=== PATIENT | female | born 1980 | race Caucasian/White ===

== ENCOUNTER 2016-07-23 23:35 | Emergency (ER) | payer SELFPAY ==
[~2016-07-23] VITALS: Ht 175.3 cm; Wt 90.7 kg
[2016-07-23] MEDS ORDERED: FLUO10CA26 PO (23:48)
[2016-07-24] MEDS ORDERED: LORAZEPAM 2 MG/1 ML VIAL ONE ×2 (00:13→00:52)
--- NOTE | 2016-07-24 00:20 | NUR ---
Patient was resting in bed with eyes closed, security at bedside for safety, when she spontaneously began to shout out, writhe in bed, and began taking drawers from the nearby night stand and began throwing items around the room. Patient did not respond to verbal redirection, acute medical restraints applied to bilateral wrists, ROM checked, circulation checked, cap refill <2 seconds.
[2016-07-24] MEDS ORDERED: LORAZEPAM 2 MG/1 ML VIAL IM ONE ×2 (00:45)
[2016-07-24 00:52] LABS: ETHANOL 221 MG/DL (0-0)
[2016-07-24 00:53] LABS: BASOPHILS % (AUTO) 0.2 % (0.0-2.0); EOSINOPHILS % (AUTO) 0.4 % (0.0-7.0); HEMATOCRIT 33.9 % (31.2-41.9); HEMOGLOBIN 11.8 g/dL (10.9-14.3); LYMPHOCYTES # (AUTO) 1.9 K/uL (20.0-40.0); LYMPHOCYTES % (AUTO) 17.4 % (20.5-51.5); MEAN CORPUSCULAR HEMOGLOBIN 26.9 uug (24.7-32.8); MEAN CORPUSCULAR HGB CONC 35 g/dL (32.3-35.6); MEAN CORPUSCULAR VOLUME 77.2 fL (75.5-95.3); MONOCYTES # (AUTO) 0.7 K/uL (2.0-10.0); MONOCYTES % (AUTO) 6.6 % (0.0-11.0); NEUTROPHILS # (AUTO) 8.6 K/uL (1.8-8.9); NEUTROPHILS % (AUTO) 75.4 % (38.5-71.5); PLATELET COUNT (AUTO) 308 K/uL (179-408); RED BLOOD CELL COUNT(AUTO) 4.39 MIL/uL (3.63-4.92); RED CELL DISTRIBUTION WIDTH 15.5 % (12.3-17.7); WHITE BLOOD COUNT (AUTO) 11.2 K/uL (3.8-11.8)
--- NOTE | 2016-07-24 00:55 | NUR ---
Removed one hand from restraint, patient calmer. Patient able to be verbally redirected.
[2016-07-24 01:01] LABS: ACETAMINOPHEN < 2.0 ug/mL (10-30); ALANINE AMINOTRANSFERASE 29 U/L (14-59); ALBUMIN 3.5 g/dL (3.4-5.0); ALKALINE PHOSPHATASE 69 U/L (50-136); ASPARTATE AMINOTRANSFERASE 21 U/L (15-37); BILIRUBIN,DIRECT 0.1 mg/dL (0.0-0.2); BILIRUBIN,TOTAL 0.2 mg/dL (0.2-1.0); CALCIUM 8.6 mg/dL (8.5-10.1); CARBON DIOXIDE 22 mmol/L (21-32); CHLORIDE 105 mmol/L (98-107); CREATININE 0.9 mg/dL (0.6-1.3); GFR 71 mL/min (>60); GLUCOSE 121 mg/dL (74-106); POTASSIUM 3.2 mmol/L (3.5-5.1); SODIUM SERUM 140 mmol/L (136-145); TOTAL PROTEIN, SERUM 7.4 g/dL (6.4-8.2); UREA NITROGEN, BLOOD 10 mg/dL (7-18)
--- NOTE | 2016-07-24 01:10 | NUR ---
Removed second restraint, patient toileted.
--- NOTE | 2016-07-24 02:32 | NUR ---
Patient calm, laying in bed. Security at bedside for safety.
--- NOTE | 2016-07-24 03:18 | NUR ---
Patient is resting comfortably in bed with eyes closed
--- NOTE | 2016-07-24 04:10 | NUR ---
Patient is resting comfortably in bed with eyes closed
[2016-07-24] MEDS ORDERED: OLANZAPINE 10 MG VIAL IM ONE ×2 (04:25→04:30)
[2016-07-24] MEDS ORDERED: diphenhydrAMINE 50 MG/1 ML VIAL ONE (04:25)
[2016-07-24] MEDS ORDERED: diphenhydrAMINE 50 MG/1 ML VIAL IM ONE (04:30)
--- NOTE | 2016-07-24 05:27 | NUR ---
Patient is resting comfortably in bed with eyes closed
--- NOTE | 2016-07-24 07:03 | NUR ---
Patient is resting comfortably in bed with eyes closed
--- NOTE | 2016-07-24 07:37 | NUR ---
REC'D SBAR REPORT FROM LEWIS KIMBALL. NO CHANGES. CA SLEEPING, EYES CLOSED, NO DISTRESS NOTED.
--- NOTE | 2016-07-24 09:09 | NUR ---
VERA CALLED AND STATED SHE WOULD BE IN AT APPROX 10AM
[2016-07-24 09:20] LABS: *AMPHETAMINE, URINE NEGATIVE (NEGATIVE); *BARBITURATE, URINE NEGATIVE (NEGATIVE); *CANNABINOID, URINE NEGATIVE (NEGATIVE); *COCCAINE, URINE NEGATIVE (NEGATIVE); *OPIATE, URINE NEGATIVE (NEGATIVE); *PHENCYCLIDINE SCREEN,URINE NEGATIVE (NEGATIVE)
--- NOTE | 2016-07-24 09:58 | NUR ---
SPOKE WITH THE PT. PT D/C'D HOME, ACI GIVEN. PT AMBULATED W/O DIFF/TOOK ALL BELONGINGS. HI THE PET DIETITIAN TEACHING CALLED TO CANCEL EVAL, LEFT HER A MESSAGE
[2016-07-24 10:00] VITALS: BP 162/60
== END 2016-07-24 10:01 | disposition home or self-care (01) ==
LOC: EDBD 23:43 → ER 23:43
DX: F32.9 Major depressive disorder, single episode, unspecified (principal); F10.129 Alcohol abuse with intoxication, unspecified; R45.851 Suicidal ideations
CPT/HCPCS: 36415; 80307; 84703; 85025; A4663; G0480-TC; G6040-TC; J1200; J2060; J2358